=== PATIENT | female | born 1975 | race Caucasian/White ===

== ENCOUNTER 2019-02-25 05:58 | Day surgery (SDC) | payer OTHER ==
[2019-02-25] MEDS ORDERED: PROPOFOL 20 ML (07:34)
[2019-02-25] MEDS ORDERED: OXYCODONE/ACETAMINOPHEN (5/325) TAB PO ×2 (08:30)
[2019-02-25] MEDS ORDERED: ONDANSETRON 4 MG INJ IV (08:30)
[2019-02-25] MEDS ORDERED: DIPHENHYDRAMINE 50 MG INJ IV (08:30)
[2019-02-25] MEDS ORDERED: MIDAZOLAM 1 MG/ML 2 ML INJ IV (08:30)
[2019-02-25] MEDS ORDERED: MEPERIDINE 25 MG INJ IV (08:30)
[2019-02-25] MEDS ORDERED: METOCLOPRAMIDE 10 MG INJ IV (08:30)
[2019-02-25] MEDS ORDERED: FENTAnyl 50 MCG/ML VIAL IV ×3 (08:30)
== END 2019-02-25 13:11 | disposition home or self-care (01) ==
LOC: GIL 05:58
DX: Z12.11 Encounter for screening for malignant neoplasm of colon (principal); K64.8 Other hemorrhoids
CPT/HCPCS: 45378; 84703